=== PATIENT | female | born 1980 | race Caucasian/White ===

== ENCOUNTER 2022-12-10 08:56 | Inpatient (IN) | payer MEDICAID ==
[2022-12-10] MEDS ORDERED: Sodium Chloride 0.9% 1,000 ML IV ONE (09:23)
[2022-12-10] MEDS ORDERED: LORazepam 2 MG/ML SDV IVPUSH ONE ×3 (09:23→15:11)
[2022-12-10] MEDS ORDERED: Ondansetron 4 MG/2 ML SDV IVPUSH ONE (09:23)
[2022-12-10] MEDS ORDERED: Folic Acid 1 MG/0.2 ML UD Syringe IV STA (09:24)
[2022-12-10] MEDS ORDERED: Thiamine 200 MG/2 ML MDV IVPUSH ONE (09:25)
[2022-12-10 09:43] LABS: BASOPHILS PERCENT AUTO 0.5 % (0.0-1.5); EOSINOPHILS ABSOLUTE AUTO 0.1 K/uL (0.0-0.7); EOSINOPHILS PERCENT AUTO 0.8 % (0.0-7.0); HEMATOCRIT 37.1 % (36.0-46.0); HEMOGLOBIN 12.9 g/dL (12.0-16.0); LYMPHOCYTES PERCENT AUTO 15.8 % (16.0-40.0); MEAN CORPUSCULAR HEMOGLOBIN 36.5 pg (27.0-32.0); MEAN CORPUSCULAR HGB CONC 34.8 g/dL (31.0-37.0); MEAN CORPUSCULAR VOLUME 105.1 fL (80.0-98.0); MONOCYTES ABSOLUTE AUTO 0.5 K/uL (0.0-0.8); MONOCYTES PERCENT AUTO 8.1 % (0.0-15.0); NEUTROPHILS ABSOLUTE AUTO 4.9 K/uL (1.4-5.7); NEUTROPHILS PERCENT AUTO 74.8 % (48.0-80.0); NRBC ABSOLUTE 0 K/uL; RED BLOOD CELL COUNT 3.53 M/uL (4.30-5.90); WHITE BLOOD CELL COUNT,WBC 6.58 K/uL (4.0-11.0)
[2022-12-10 09:53] LABS: PLATELET COUNT,PLT 153 K/uL (150-400)
[2022-12-10 09:57] LABS: INR 1.48 (0.86-1.11); PTT,PARTIAL THROMBOPLSTIN TIME 29.1 SEC (23.9-30.7)
[2022-12-10] MEDS ORDERED: PHENobarbital Sodium 130 MG/ML SDV IVPUSH ONE (10:14)
[2022-12-10] MEDS ORDERED: PHENobarbital Sodium 130 MG/ML SDV ONE (10:14)
[2022-12-10 10:15] LABS: A/G RATIO 1.1 (0.9-1.6); ALANINE AMINOTRANSFERASE,ALT 159 IU/L (14-63); ALBUMIN 4.2 g/dL (3.4-5.0); ALKALINE PHOSPHATASE 112 U/L (46-116); ASPARTATE AMNIOTRANSFERASE,AST 329 IU/L (15-37); BILIRUBIN TOTAL 6.5 mg/dL (0.2-1.0); BLOOD UREA NITROGEN,BUN 16 mg/dL (7.0-18.0); CALCIUM 8.9 mg/dL (8.5-10.1); CARBON DIOXIDE,CO2 25.9 mmol/L (21.0-32.0); CHLORIDE,CL 98 mmol/L (98-107); CREATININE 0.9 mg/dL (0.6-1.0); EST CRCL DRUG DOSING (CG) 74.37 mL/min; GLUCOSE RANDOM 93 mg/dL (74-106); LIPASE 46 U/L (16-77); MAGNESIUM 1.6 mg/dL (1.8-2.4); POTASSIUM,K 3.4 mmol/L (3.5-5.1); PROTEIN TOTAL,TP 8.1 g/dL (6.4-8.2); SODIUM,NA 136 mmol/L (136-145)
[2022-12-10 10:16] LABS: ESTIMATED GFR 83 mL/min (>60); ETHANOL BLOOD MEDICAL < 3.0 mg/dL
[2022-12-10 10:17] LABS: LACTIC ACID 2.2 mmol/L (0.4-2.0)
[2022-12-10] MEDS ORDERED: PHENobarbitaL sodium 260 MG in Sodium Chloride 0.9% 100 ML IV ONE ×6 (10:30→10:44)
[2022-12-10] MEDS ORDERED: Haloperidol Lactate 5 MG/ML SDV IM ONE (10:55)
[2022-12-10] MEDS ORDERED: Midazolam 1 MG/ML 2 ML SDV IVPUSH ONE ×2 (12:38→12:39)
[2022-12-10] MEDS ORDERED: Midazolam 1 MG/ML 2 ML SDV ONE (12:39)
[2022-12-10] MEDS ORDERED: LORazepam 2 MG/ML SDV ONE (15:01)
[2022-12-10] MEDS ORDERED: Magnesium Sulfate/Water 2 GM in Premix Bag 1 BAG IV ONE (15:08)
[2022-12-10] MEDS ORDERED: Potassium Chloride 20 MEQ in Premix Bag 1 BAG IV ONE (15:08)
[2022-12-10] MEDS ORDERED: Polyethylene Glycol 3350 Powder 17 GM Packet PO PRN (15:16)
[2022-12-10] MEDS: Dextrose 5%-Lactated Ringers 1,000 ML IV SCH ×2 (15:33→23:40)
[2022-12-10] MEDS: Nicotine 21 MG/24 Hr Patch TRDERM SCH (16:15)
[2022-12-10] MEDS: Pantoprazole 40 MG in Sodium Chloride 0.9% 10 ML IVPUSH SCH (17:06)
[2022-12-10] MEDS ORDERED: Iopamidol 755 MG/ML 500 ML Multipack Bottle IVPUSH STA (17:52)
[2022-12-10] MEDS: LORazepam 2 MG/ML SDV IVPUSH PRN ×2 (20:21→21:17)
[2022-12-10] MEDS ORDERED: Haloperidol 5 MG Tab PO PRN (21:03)
[2022-12-11 06:04] LABS: BASOPHILS PERCENT AUTO 0.7 % (0.0-1.5); EOSINOPHILS ABSOLUTE AUTO 0.1 K/uL (0.0-0.7); HEMATOCRIT 31.1 % (36.0-46.0); HEMOGLOBIN 10.7 g/dL (12.0-16.0); LYMPHOCYTES PERCENT AUTO 37.7 % (16.0-40.0); MEAN CORPUSCULAR HEMOGLOBIN 36.5 pg (27.0-32.0); MEAN CORPUSCULAR HGB CONC 34.4 g/dL (31.0-37.0); MEAN CORPUSCULAR VOLUME 106.1 fL (80.0-98.0); MONOCYTES ABSOLUTE AUTO 0.2 K/uL (0.0-0.8); MONOCYTES PERCENT AUTO 7.1 % (0.0-15.0); NEUTROPHILS ABSOLUTE AUTO 1.4 K/uL (1.4-5.7); NEUTROPHILS PERCENT AUTO 51.5 % (48.0-80.0); NRBC ABSOLUTE 0 K/uL; RED BLOOD CELL COUNT 2.93 M/uL (4.30-5.90); WHITE BLOOD CELL COUNT,WBC 2.68 K/uL (4.0-11.0)
[2022-12-11 06:29] LABS: A/G RATIO 0.8 (0.9-1.6); ALBUMIN 2.6 g/dL (3.4-5.0); BILIRUBIN TOTAL 4.1 mg/dL (0.2-1.0); CALCIUM 6.9 mg/dL (8.5-10.1); CARBON DIOXIDE,CO2 26.7 mmol/L (21.0-32.0); CREATININE 0.7 mg/dL (0.6-1.0); EST CRCL DRUG DOSING (CG) 94.86 mL/min; PROTEIN TOTAL,TP 5.8 g/dL (6.4-8.2)
[2022-12-11 06:45] LABS: PLATELET COUNT,PLT 102 K/uL (150-400)
[2022-12-11] MEDS: Dextrose 5%-Lactated Ringers 1,000 ML IV SCH (07:19)
[2022-12-11] MEDS: Nicotine 21 MG/24 Hr Patch TRDERM SCH (08:29)
[2022-12-11] MEDS: Thiamine 200 MG/2 ML MDV IVPUSH SCH (08:29)
[2022-12-11] MEDS: Folic Acid 1 MG/0.2 ML UD Syringe IV SCH (08:29)
[2022-12-11] MEDS ORDERED: Potassium Chloride 20 MEQ in Premix Bag 1 BAG IV ONE (08:40)
[2022-12-11] MEDS ORDERED: Thiamine 100 MG in Sodium Chloride 0.9% 100 ML IV SCH (09:00)
[2022-12-11] MEDS ORDERED: NS with KCl 40mEq 1,000 ML IV SCH (11:45)
[2022-12-11] MEDS: LORazepam 2 MG/ML SDV IVPUSH PRN ×2 (12:44→16:09)
[2022-12-11 14:25] LABS: CARBON DIOXIDE,CO2 26.5 mmol/L (21.0-32.0); CREATININE 0.6 mg/dL (0.6-1.0); EST CRCL DRUG DOSING (CG) 110.67 mL/min
[2022-12-11] MEDS: Pantoprazole 40 MG in Sodium Chloride 0.9% 10 ML IVPUSH SCH (15:40)
[2022-12-12] MEDS: Dextrose 5%-Lactated Ringers 1,000 ML IV SCH ×3 (04:46→20:51)
[2022-12-12] MEDS: Nicotine 21 MG/24 Hr Patch TRDERM SCH (08:00)
[2022-12-12] MEDS: Thiamine 200 MG/2 ML MDV IVPUSH SCH (08:07)
[2022-12-12] MEDS: Folic Acid 1 MG/0.2 ML UD Syringe IV SCH (08:07)
[2022-12-12 09:08] LABS: BASOPHILS PERCENT AUTO 1.2 % (0.0-1.5); EOSINOPHILS ABSOLUTE AUTO 0.1 K/uL (0.0-0.7); EOSINOPHILS PERCENT AUTO 2.6 % (0.0-7.0); HEMATOCRIT 31.8 % (36.0-46.0); LYMPHOCYTES ABSOLUTE AUTO 1.2 K/uL (0.6-2.4); LYMPHOCYTES PERCENT AUTO 33.2 % (16.0-40.0); MEAN CORPUSCULAR HEMOGLOBIN 36.8 pg (27.0-32.0); MEAN CORPUSCULAR HGB CONC 34.6 g/dL (31.0-37.0); MEAN CORPUSCULAR VOLUME 106.4 fL (80.0-98.0); MONOCYTES ABSOLUTE AUTO 0.3 K/uL (0.0-0.8); MONOCYTES PERCENT AUTO 8.4 % (0.0-15.0); NEUTROPHILS ABSOLUTE AUTO 1.9 K/uL (1.4-5.7); NEUTROPHILS PERCENT AUTO 54.6 % (48.0-80.0); NRBC ABSOLUTE 0 K/uL; RED BLOOD CELL COUNT 2.99 M/uL (4.30-5.90); WHITE BLOOD CELL COUNT,WBC 3.46 K/uL (4.0-11.0)
[2022-12-12 09:18] LABS: A/G RATIO 0.8 (0.9-1.6); ALBUMIN 2.7 g/dL (3.4-5.0); BILIRUBIN TOTAL 3.1 mg/dL (0.2-1.0); CALCIUM 7.3 mg/dL (8.5-10.1); CARBON DIOXIDE,CO2 25.2 mmol/L (21.0-32.0); CREATININE 0.8 mg/dL (0.6-1.0); EST CRCL DRUG DOSING (CG) 83.13 mL/min; MAGNESIUM 1.5 mg/dL (1.8-2.4); POTASSIUM,K 3.7 mmol/L (3.5-5.1)
[2022-12-12] MEDS ORDERED: Magnesium Sulfate (4.06 MEQ/ML) 5 GM/10 ML SDV IV ONE (09:28)
[2022-12-12] MEDS ORDERED: Phosphorus #1 250 MG Tab PO ONE (09:30)
[2022-12-12 09:39] LABS: PLATELET COUNT,PLT 69 K/uL (150-400)
[2022-12-12] MEDS ORDERED: Magnesium Sulfate/Water 4 GM in Premix Bag 1 BAG IV ONE (09:45)
[2022-12-12] MEDS: Phosphorus #1 250 MG Tab PO SCH ×3 (11:10→23:42)
[2022-12-12] MEDS: Pantoprazole 40 MG in Sodium Chloride 0.9% 10 ML IVPUSH SCH (16:35)
[2022-12-13] MEDS: Ibuprofen 400 MG Tab PO PRN ×2 (00:28→13:23)
[2022-12-13] MEDS: Dextrose 5%-Lactated Ringers 1,000 ML IV SCH (05:15)
[2022-12-13] MEDS: Phosphorus #1 250 MG Tab PO SCH (05:17)
[2022-12-13 05:59] LABS: HEMATOCRIT 30.1 % (36.0-46.0); HEMOGLOBIN 10.2 g/dL (12.0-16.0); MEAN CORPUSCULAR HEMOGLOBIN 36.2 pg (27.0-32.0); MEAN CORPUSCULAR HGB CONC 33.9 g/dL (31.0-37.0); MEAN CORPUSCULAR VOLUME 106.7 fL (80.0-98.0); MEAN PLATELET VOLUME 10.9 fL (7.40-12.00); RED BLOOD CELL COUNT 2.82 M/uL (4.30-5.90); WHITE BLOOD CELL COUNT,WBC 2.72 K/uL (4.0-11.0)
[2022-12-13 06:26] LABS: A/G RATIO 0.8 (0.9-1.6); ALBUMIN 2.5 g/dL (3.4-5.0); BILIRUBIN TOTAL 1.9 mg/dL (0.2-1.0); CALCIUM 7.3 mg/dL (8.5-10.1); CARBON DIOXIDE,CO2 27.7 mmol/L (21.0-32.0); CREATININE 0.7 mg/dL (0.6-1.0); EST CRCL DRUG DOSING (CG) 95.01 mL/min; MAGNESIUM 1.5 mg/dL (1.8-2.4); PHOSPHORUS 3.7 mg/dL (2.6-4.7); POTASSIUM,K 3.3 mmol/L (3.5-5.1); PROTEIN TOTAL,TP 5.5 g/dL (6.4-8.2)
[2022-12-13] MEDS ORDERED: Magnesium Sulfate/Water 2 GM in Premix Bag 1 BAG IV ONE (07:30)
[2022-12-13] MEDS ORDERED: Potassium Chloride 20 MEQ Tab.ER PO ONE (07:30)
[2022-12-13] MEDS: Thiamine 200 MG/2 ML MDV IVPUSH SCH (08:20)
[2022-12-13] MEDS: Folic Acid 1 MG/0.2 ML UD Syringe IV SCH (08:20)
[2022-12-13] MEDS: Nicotine 21 MG/24 Hr Patch TRDERM SCH (08:29)
[2022-12-13] MEDS: Pantoprazole 40 MG in Sodium Chloride 0.9% 10 ML IVPUSH SCH (16:40)
[2022-12-14 17:07] LABS: HEPATITIS C QUANTITATION 195000 IU/mL
== END 2022-12-13 18:30 | disposition home or self-care (01) | DRG 897 ==
LOC: MW.ED 08:56 → MW.ICU 14:44 → MW.MS 12-12 13:54
PROVIDERS: ADMIT Internal Medicine; ATTEND Internal Medicine
DX: F10.931 Alcohol use, unspecified with withdrawal delirium (principal); I85.10 Secondary esophageal varices without bleeding; K76.6 Portal hypertension; K70.10 Alcoholic hepatitis without ascites; F17.210 Nicotine dependence, cigarettes, uncomplicated; F19.10 Other psychoactive substance abuse, uncomplicated; E87.8 Other disorders of electrolyte and fluid balance, not elsewhere classified; D69.6 Thrombocytopenia, unspecified; Z88.2 Allergy status to sulfonamides; Z86.16 Personal history of COVID-19; Z98.890 Other specified postprocedural states
CPT/HCPCS: 36415; 70450; 70450-26; 74177; 74177-26; 80048; 80053; 80307; 83605; 83690; 83735; 84100; 84703; 85025; 85027; 85610; 85730; 86706; 86803; 87340; 87522; 99291; A9270-GY; C9113; J2060; J2250; J2405; J2560; J3411; J3475; J3480; J3490; J7030; J7121; Q9967